=== PATIENT | female | born 1965 | race Caucasian/White ===

== ENCOUNTER 2016-10-11 20:54 | Emergency (ER) | payer BC ==
--- NOTE | ~2016-10-11 | ER ---
PATIENT'S NAME: JOSE ARMANDO [facility] AGE: 51 Y [address] ROOM: [place] [address] LOCATION: ED ADMIT DATE: 10/11/2016 ER/Outpatient Report DISCHARGE DATE: 10/11/2016 FAMILY PHYSICIAN: Elliott Buck MD ATTENDING PHYSICIAN: Barry Daly Time of Arrival: 2053 Time of Evaluation: 2057 CHIEF COMPLAINT: Constipation. HISTORY OF PRESENT ILLNESS: The patient is a 51-year-old female, who presents to the emergency department today with chief complaint of constipation. She reports it has been going on for about 2 weeks. She reports she developed some abdominal crampy-type pain in the left side. She denies any nausea or vomiting. No fevers or chills. She did have some small amount of bowel movement 60 minutes ago. Denies any urinary frequency, urgency, or painful urination. No dark tarry stools. No blood in her stool. MEDICATIONS: Please see list. ALLERGIES: SULFA. PAST MEDICAL HISTORY: IBS, constipation, heart valve, food allergies. PAST SURGICAL HISTORY: , colonoscopy, hysterectomy. SOCIAL HISTORY: The patient smokes 4 cigarettes a day for greater than 10 years. Denies any alcohol or illicit drug use. ROS: All systems are reviewed by myself and negative with the exception of those discussed in HPI and past medical history. PHYSICAL EXAMINATION: VITAL SIGNS: Weight 61.7 kg, blood pressure 143/96, pulse 84, respiratory rate 16, temperature 97.4, oxygen saturation 94% on room air. GENERAL: The patient is a 51-year-old female, who appears stated age, in no PATIENT'S NAME: JOSE ARMANDO [facility] AGE: 51 Y [address] ROOM: [place] [address] LOCATION: ED ADMIT DATE: 10/11/2016 ER/Outpatient Report DISCHARGE DATE: 10/11/2016 FAMILY PHYSICIAN: Elliott Buck MD ATTENDING PHYSICIAN: Barry Daly acute distress at this time. HEENT: Head normocephalic, atraumatic. Pupils are equal, round, and reactive to light and accommodation. Extraocular motions are intact. Nares are patent bilaterally. TMs are clear. Oropharynx is clear. NECK: Supple. There is no nuchal rigidity. CARDIOVASCULAR: Regular rate and rhythm. No murmurs, rubs, or gallops. LUNGS: Clear to auscultation bilaterally. No wheezes, rales, or rhonchi. ABDOMEN: Soft, nontender, and nondistended. No rebound, rigidity, or guarding. MUSCULOSKELETAL: The patient moves all 4 extremities. SKIN: Warm and dry. No rashes or lesions noted. LABORATORY DATA AND X-RAYS: Obtained. CBC is unremarkable. CMP unremarkable except for sodium 133, potassium 3.2. LFTs are normal. Urinalysis is negative. Lactate is normal. Procalcitonin is less than 0.05. A three-way abdomen is obtained, is interpreted by myself, shows nonspecific bowel gas pattern. IMPRESSION: 1. Constipation. 2. Acute nonsurgical diffuse abdominal pain. 3. Initial visit. EMERGENCY DEPARTMENT COURSE: The patient was brought back to the examination room. Seen and evaluated by myself. IV is established. Laboratory analysis and imaging are obtained as described above. I have discussed results with the patient. Her abdominal exam is repeated multiple times here in the emergency department. She continues to have a nonsurgical abdominal exam at this time. We will write her for [facility] and I have recommended she gets [id number] stool softeners. I have asked she follows up with Dr. Buck in 1 to 2 days for re-evaluation. I have discussed return to care instructions including if worsening symptoms or any other concerns, return to the emergency department as soon as possible. The patient is agreeable without further questions at this time. DISPOSITION/FOLLOW-UP: The patient is discharged home in good condition. PRIMARY CARE DOCTOR: Dr. Buck. PATIENT'S NAME: JOSE ARMANDO [facility] AGE: 51 Y [address] ROOM: [place], [place] [address] LOCATION: ED ADMIT DATE: 10/11/2016 ER/Outpatient Report DISCHARGE DATE: 10/11/2016 FAMILY PHYSICIAN: Elliott Bcuk MD ATTENDING PHYSICIAN: Barry Daly DO KJR/josé /[id number] d: 10/12/16720 t: 10/13/162042, OUTPATIENT REPORT
[~2016-10-11 20:54] MED LIST: AMITIZA24 MCG PO; ATIVAN 0.5MG0.5 MG PO; ENULOSE UD L30 ML/EA PO; MIRALAX17 GM PO; PROBIOTIC1 EAC2 PO; PROTONIX40 MG PO; PROZAC20 MG PO; STOOL SOFTENER100 M1 PO; ZANTAC (NON-FO150 MG PO
[2016-10-11 21:21] LABS: BASOPHIL # 0.1 K/uL (0.0-0.2); EOSINOPHIL # 0.1 K/uL (0.0-0.5); EOSINOPHIL % 1.6 %; HEMATOCRIT 40.5 % (33.0-46.0); HEMOGLOBIN 14.4 g/dL (10.0-15.0); IMMATURE GRANULOCYTE % 0.1 %; LYMPHOCYTE # 2.5 K/uL (0.8-4.0); LYMPHOCYTE % 36.4 %; MCHC 35.6 gm/dL (32.0-36.5); MONOCYTE # 0.6 K/uL (0.0-1.0); MPV 8.6 fl (9.4-12.4); NEUTROPHIL # (ANC) 3.5 K/uL (1.8-7.8); NEUTROPHIL % 51.9 %; NRBC % 0 /100WBC (0-0.00); PLATELET COUNT 248 K/uL (150-450); RDW-CV 11.6 % (11.9-14.6); WBC 6.8 K/uL (4.0-11.0)
[2016-10-11 21:31] LABS: BILIRUBIN URINE NEGATIVE (NEGATIVE); BLOOD URINE NEGATIVE /UL (NEGATIVE); COLOR URINE YELLOW (YELLOW); GLUCOSE URINE NEGATIVE (NEGATIVE); KETONE URINE NEGATIVE (NEGATIVE); LEUKOCYTES URINE NEGATIVE /UL (NEGATIVE); NITRITE URINE NEGATIVE (NEGATIVE); PROTEIN URINE NEGATIVE (NEGATIVE); SPEC GRAVITY URINE 1.005 (1.003-1.035); TURBIDITY URINE CLEAR (CLEAR); UROBILINOGEN URINE NORMAL (NORMAL)
[2016-10-11 21:36] LABS: ALBUMIN 3.7 gm/dL (3.5-5.0); ANION GAP 11.2 (10.0-19.0); CALCIUM 8.5 mg/dL (8.5-10.5); CREATININE 0.8 mg/dL (0.5-1.1); POTASSIUM 3.2 mMol/L (3.7-5.1); TOTAL BILIRUBIN 0.5 mg/dL (0.0-1.5); TOTAL PROTEIN 7.1 g/dL (6.0-8.4)
== END 2016-10-11 22:36 | disposition disaster alternative care site (69) ==
LOC: GMED 20:54
PROVIDERS: Emergency Medicine
DX: K59.00 Constipation, unspecified (principal); K58.9 Irritable bowel syndrome, unspecified; F17.210 Nicotine dependence, cigarettes, uncomplicated; Z98.890 Other specified postprocedural states; Z88.2 Allergy status to sulfonamides; Z79.899 Other long term (current) drug therapy
CPT/HCPCS: J7030